=== PATIENT | female | born 1965 | race Caucasian/White ===

== ENCOUNTER 2017-12-26 17:39 | Day surgery (SDC) | payer OTHER ==
[2017-12-26] MEDS ORDERED: MIDAZOLAM 1 MG/ML 2 ML INJ (19:15)
[2017-12-26] MEDS ORDERED: CEFAZOLIN 1 GM INJ (19:15)
[2017-12-26] MEDS ORDERED: BUPIVACAINE 0.5% (SDV) 30 ML INJ (19:24)
[2017-12-26] MEDS ORDERED: BUPIVACAINE 0.25% (MPF) 30 ML INJ (19:24)
[2017-12-26] MEDS ORDERED: LIDOCAINE 1% (MPF) 30 ML INJ (19:24)
[2017-12-26] MEDS ORDERED: MEPERIDINE 25 MG INJ IV (20:00)
[2017-12-26] MEDS ORDERED: METOCLOPRAMIDE 10 MG INJ IV (20:00)
[2017-12-26] MEDS ORDERED: ONDANSETRON 4 MG INJ IV (20:00)
[2017-12-26] MEDS ORDERED: DIPHENHYDRAMINE 50 MG INJ IV (20:00)
[2017-12-26] MEDS ORDERED: HYDROmorphONE (0.2 MG/ML) 10ML SYG IV ×3 (20:00)
[2017-12-26] MEDS ORDERED: MIDAZOLAM 1 MG/ML 2 ML INJ IV (20:00)
[2017-12-26] MEDS ORDERED: OXYCODONE/ACETAMINOPHEN (5/325) TAB PO ×3 (20:00→22:30)
[2017-12-26] MEDS: BUPIVACAINE 0.5% (MPF) 30 ML INJ EPI (20:15)
[2017-12-26] MEDS: LIDOCAINE 1% (MPF) 30 ML INJ INJ (20:16)
[2017-12-26] MEDS: POLYMYXIN/BACITRACIN 1L IRRIG IRR (20:16)
== END 2017-12-26 21:54 | disposition home or self-care (01) ==
LOC: SDS 17:39
DX: S62.630D Displaced fracture of distal phalanx of right index finger, subsequent encounter for fracture with routine healing (principal); S56.41 Strain of extensor muscle, fascia and tendon of other and unspecified finger at forearm level; W23.0XXD Caught, crushed, jammed, or pinched between moving objects, subsequent encounter
CPT/HCPCS: 26432; 73140; 84703